=== PATIENT | male | born 1985 | race Asian ===

== ENCOUNTER 2016-08-25 00:50 | Emergency (ER) | payer SELFPAY ==
[~2016-08-25] VITALS: Ht 162.6 cm; Wt 61.4 kg
[2016-08-25 00:57] VITALS: BP 130/62
== END 2016-08-25 02:11 | disposition home or self-care (01) ==
LOC: EMS 00:53
DX: R04.0 Epistaxis (principal); F17.210 Nicotine dependence, cigarettes, uncomplicated
CPT/HCPCS: 99283